=== PATIENT | female | born 2000 | race Two or more races ===

== ENCOUNTER 2022-08-02 10:16 | Outpatient (CLI) | payer OTHER | END 2022-08-02 11:50 | disposition home or self-care (01) | LOC: PRENATAL 10:16 | PROVIDERS: ATTEND Obstetrics & Gynecology Maternal & Fetal Medicine | DX: O26.849 Uterine size-date discrepancy, unspecified trimester (principal); Z36 Encounter for antenatal screening of mother; Z3A.15 15 weeks gestation of pregnancy ==

== ENCOUNTER 2022-09-04 10:45 | Outpatient (CLI) | payer OTHER | END 2022-09-04 12:26 | disposition home or self-care (01) | LOC: PRENATAL 10:45 | PROVIDERS: ATTEND Obstetrics & Gynecology Maternal & Fetal Medicine | DX: O35.9XX0 Maternal care for (suspected) fetal abnormality and damage, unspecified, not applicable or unspecified (principal); O35.3XX0 Maternal care for (suspected) damage to fetus from viral disease in mother, not applicable or unspecified; Z3A.20 20 weeks gestation of pregnancy ==

== ENCOUNTER 2022-11-27 09:07 | Outpatient (CLI) | payer OTHER | END 2022-11-27 09:37 | disposition home or self-care (01) | LOC: PRENATAL 09:07 | PROVIDERS: ATTEND Obstetrics & Gynecology Maternal & Fetal Medicine | DX: O26.849 Uterine size-date discrepancy, unspecified trimester (principal); O36.8199 Decreased fetal movements, unspecified trimester, other fetus; Z3A.32 32 weeks gestation of pregnancy ==

== ENCOUNTER 2023-01-18 18:11 | Inpatient (IN) | payer OTHER ==
[~2023-01-18] VITALS: Ht 154.9 cm; Wt 70.8 kg
[2023-01-18 19:13] LABS: HEMATOCRIT 31.1 % (36.0-45.00); HEMOGLOBIN 10.3 g/dL (12.0-15.00); MEAN CELL VOLUME 86.7 fL (80.00-100.00); MEAN CORPUSCULAR HEMOGLOBIN 28.6 pg (27.00-32.0); PLATELET COUNT 141 K/uL (150-450); RED BLOOD COUNT 3.59 M/uL (4.00-6.00); RED CELL DISTRIBUTION WIDTH 14.5 % (11.5-14.5)
[2023-01-18 19:23] LABS: URINE APPEARANCE Clear; URINE BILIRRUBIN Negative (NEGATIVE); URINE BLOOD Negative; URINE COLOR Yellow; URINE GLUCOSE Negative (NEGATIVE); URINE LEUKOCYTE Small; URINE NITRATE Negative; URINE PROTEIN Negative (NEGATIVE)
[2023-01-18 19:27] LABS: URINE WBC 91.5 uL (0.0-23.2)
[2023-01-19 12:37] LABS: HEMATOCRIT 31.8 % (36.0-45.00); HEMOGLOBIN 10.4 g/dL (12.0-15.00); MEAN CELL VOLUME 86.5 fL (80.00-100.00); MEAN CORPUSCULAR HEMOGLOBIN 28.4 pg (27.00-32.0); MEAN CORPUSCULAR HGB CONC 32.9 g/dl (32.0-36.0); PLATELET COUNT 140 K/uL (150-450); RED BLOOD COUNT 3.67 M/uL (4.00-6.00); RED CELL DISTRIBUTION WIDTH 14.5 % (11.5-14.5)
== END 2023-01-21 10:42 | disposition home or self-care (01) | DRG 807 ==
LOC: OBS/DEL 18:11 → LDR 01-19 03:33 → OB/GYN 01-19 03:33
PROVIDERS: Specialist; ADMIT Obstetrics & Gynecology; ATTEND Obstetrics & Gynecology
PROC: 10E0XZZ Delivery of Products of Conception, External Approach (ICD-10-PCS; principal; 2023-01-19)
PROC: 0HQ9XZZ Repair Perineum Skin, External Approach (ICD-10-PCS; 2023-01-19)
PROC: 0W8NXZZ Division of Female Perineum, External Approach (ICD-10-PCS; 2023-01-19)
PROC: 4A1HXCZ Monitoring of Products of Conception, Cardiac Rate, External Approach (ICD-10-PCS; 2023-01-19)
DX: O70.0 First degree perineal laceration during delivery (principal); Z37.0 Single live birth; Z3A.39 39 weeks gestation of pregnancy; Z20.822 Contact with and (suspected) exposure to COVID-19